=== PATIENT | female | born 1980 | race Caucasian/White ===

== ENCOUNTER 2020-12-29 00:21 | Observation (INO) | payer OTHER, SELFPAY ==
[2020-12-29] MEDS ORDERED: Clindamycin/D5W 600 mg/50 ml Premix Bag ONE (02:09)
[2020-12-29] MEDS ORDERED: Acetaminophen 500 MG TAB ONE ×2 (03:27)
[2020-12-29] MEDS ORDERED: Ondansetron ODT 4 MG TAB PO PRN (03:45)
[2020-12-29] MEDS ORDERED: Acetaminophen 325 MG TAB PO PRN (03:45)
[2020-12-29] MEDS ORDERED: Ondansetron PF 4 MG/2 ML Vial IVP PRN (03:45)
[2020-12-29] MEDS ORDERED: Dextrose 50% Abboject 50 ML SYRINGE SLOW IVP PRN (03:45)
[2020-12-29] MEDS ORDERED: HumaLOG 300 UNITS/3 ML VIAL SC PRN (03:45)
[2020-12-29] MEDS ORDERED: Dextrose 5% in Water 1,000 ML IV PRN (03:45)
[2020-12-29 04:23] LABS: Hemoglobin A1c 9.1 % (4.0-6.0)
[2020-12-29 05:23] VITALS: BMI 42.7
[2020-12-29] MEDS: HumaLOG 300 UNITS/3 ML VIAL SC PRN (05:55)
[2020-12-29] MEDS: Clindamycin/D5W 600 MG in Premix Bag 1 BAG IVPB SCH ×2 (09:09→17:34)
[2020-12-29] MEDS: Atorvastatin Calcium 20 MG TAB PO SCH ×2 (09:10→12:40)
[2020-12-29 11:12] LABS: SARS-CoV-2 PCR by NAA Not Detected (NotDetected)
[2020-12-29 13:54] LABS: HIV (1/2) Antibody/Antigen Non-Reactive (NonReactive); HIV 1/2 INDEX 0.11 S/CO (<1.00)
[2020-12-29 14:28] LABS: Bacteria/HPF None Seen HPF (None Seen); Bilirubin Negative (Negative); Blood, Urine Negative (Negative); Clarity Clear (Clear); Glucose, Urine (Dipstick) Normal (Negative); Ketone, Urine Negative (Negative); Leukocyte Negative Leu/uL (Negative); Nitrite Negative (Negative); Protein, Urine (Dipstick) Negative (Neg-Trace); RBC/HPF 0-3 HPF (0-3); Specific Gravity, Urine 1.012 (1.002-1.036); Squamous Epithelial 0-3 HPF (0-3); Urobilinogen Normal mg/dL (Less than 2); WBC/HPF 0-3 HPF (0-3); pH, Urine 5.5 (5.0-9.0)
[2020-12-29 14:35] LABS: Amphetamine Not Detected (NotDetected); Barbiturates Screen Not Detected (NotDetected); Benzodiazepine Screen Detected (NotDetected); Cocaine Metabolite Screen Not Detected (NotDetected); Methadone Not Detected (NotDetected); Methamphetamine Not Detected (NotDetected); Opiate Screen Not Detected (NotDetected); Oxycodone Screen Not Detected (NotDetected); Phencyclidine (PCP) Not Detected (NotDetected); THC/Cannabinoid Screen Not Detected (NotDetected); Tricyclic Screen Not Detected (NotDetected)
[2020-12-29 15:11] LABS: Urine Culture Reflex No No
[2020-12-29] MEDS: Etodolac 200 MG CAP PO PRN (20:18)
[2020-12-29] MEDS ORDERED: Atorvastatin Calcium 20 MG TAB PO SCH (21:00)
[2020-12-29] MEDS ORDERED: Lantus 1000 UNITS/10 ML VIAL SC SCH (21:00)
[2020-12-30 00:46] VITALS: TEMP 97.8
[2020-12-30] MEDS: Clindamycin/D5W 600 MG in Premix Bag 1 BAG IVPB SCH ×3 (01:29→11:13)
[2020-12-30 05:54] LABS: #Eosinphils 0.3 thou/uL (0.0-0.7); #Lymphocytes 2.7 thou/uL (1.20-3.40); #Monocytes 0.5 thou/uL (0.11-0.59); #Neutrophils 5.3 thou/uL (1.40-6.50); %Basophils 0.3 % (0.0-1.0); %Eosinophils 3.8 % (0.0-10.0); %Lymphocytes 30.7 % (21.0-51.0); %Monocytes 5.5 % (0.0-10.0); %Neutrophils 59.7 % (42.0-75.0); Hemoglobin 12.7 g/dL (12.0-16.0); Mean Corpuscular HGB CONC 32.9 g/dL (32.0-36.0); Mean Corpuscular Volume 88.2 fL (78.0-98.0); Mean Platelet Volume 6.8 fL (7.4-10.4); Platelet Count 305 thou/uL (130-400); RBC Distribution Width 13.4 % (11.5-14.5); Red Blood Cell (RBC) Count 4.38 mill/uL (4.20-5.40); White Blood Cell (WBC) Count 8.8 thou/uL (4.8-10.8)
[2020-12-30 06:16] LABS: Anion Gap 13 mmol/L (10-20); BUN (Urea Nitrogen) 10 mg/dL (7.0-18.7); Calc. Creatinine Clearance 192 mL/min (70-130); Calcium 9.3 mg/dL (7.8-10.44); Carbon Dioxide 24 mmol/L (22-29); Chloride 107 mmol/L (98-107); Glucose 231 mg/dL (70-105); Potassium 4.3 mmol/L (3.5-5.1); Sodium 140 mmol/L (136-145)
[2020-12-30] MEDS: HumaLOG 300 UNITS/3 ML VIAL SC PRN (06:17)
[2020-12-30 08:28] VITALS: BP 115/77
[2020-12-30] MEDS: Etodolac 200 MG CAP PO PRN (10:42)
[2021-01-01 12:04] LABS: CCP IgG Antibody 0.9 EliAU/mL (<7 Negative); EliA RAS New Method **** NEW METHOD ****; Rheumatoid Factor IgM Antibody 0.9 IU/mL (<3.5 Negative)
== END 2020-12-30 11:45 | disposition home or self-care (01) ==
LOC: ERS 00:21 → INTOOBSV 01:24 → SURG B 01:24 → ERHOLD 01:31 → SURG B 04:53
PROVIDERS: ADMIT Student in an Organized Health Care Education/Training Program; ATTEND Student in an Organized Health Care Education/Training Program
DX: M65.88 Other synovitis and tenosynovitis, other site (principal); E11.9 Type 2 diabetes mellitus without complications; K21.9 Gastro-esophageal reflux disease without esophagitis; F17.210 Nicotine dependence, cigarettes, uncomplicated; E78.5 Hyperlipidemia, unspecified; E66.9 Obesity, unspecified; Z68.41 Body mass index [BMI] 40.0-44.9, adult; Z79.4 Long term (current) use of insulin; Z79.84 Long term (current) use of oral hypoglycemic drugs; Z79.899 Other long term (current) drug therapy; Z20.822 Contact with and (suspected) exposure to COVID-19
CPT/HCPCS: 36415; 36416; 80048; 80306; 81001; 83036; 83520; 85025; 85652; 86140; 86200; 87040; 87389; 96365; G0378; J1815; J3490; U0003; U0005

== ENCOUNTER 2022-03-10 13:36 | Outpatient (CLI) | payer OTHER | END 2022-03-10 13:37 | disposition home or self-care (01) | LOC: BICMAMMO 13:36 | PROVIDERS: ATTEND Physician Assistant | DX: Z12.31 Encounter for screening mammogram for malignant neoplasm of breast (principal); Z80.3 Family history of malignant neoplasm of breast | CPT/HCPCS: 77063; 77067 ==